=== PATIENT | female | born 1955 | race Caucasian/White ===

== ENCOUNTER 2019-02-19 19:38 | Inpatient (IN) | payer MEDICAID, MEDICARE, OTHER ==
[~2019-02-19] VITALS: Ht 154.9 cm; Wt 70.3 kg
[~2019-02-19 19:38] MED LIST: ATEN25TA PO; LEVO100T10 PO
[2019-02-19 20:37] LABS: BASOPHILS # (AUTO) 0.1 K/uL (0.0-8.0); BASOPHILS % (AUTO) 0.9 % (0.0-2.0); EOSINOPHILS # (AUTO) 0.1 K/uL (0.0-0.7); EOSINOPHILS % (AUTO) 0.9 % (0.0-7.0); HEMATOCRIT 26.8 % (31.2-41.9); HEMOGLOBIN 8.9 g/dL (10.9-14.3); LYMPHOCYTES # (AUTO) 1.1 K/uL (20.0-40.0); LYMPHOCYTES % (AUTO) 12.9 % (20.5-51.5); MEAN CORPUSCULAR HEMOGLOBIN 29.3 uug (24.7-32.8); MEAN CORPUSCULAR HGB CONC 33 g/dL (32.3-35.6); MEAN CORPUSCULAR VOLUME 87.6 fL (75.5-95.3); MONOCYTES % (AUTO) 11.5 % (0.0-11.0); NEUTROPHILS # (AUTO) 6.3 K/uL (1.8-8.9); NEUTROPHILS % (AUTO) 73.8 % (38.5-71.5); PLATELET COUNT (AUTO) 465 K/uL (179-408); RED BLOOD CELL COUNT(AUTO) 3.05 MIL/uL (3.63-4.92); WHITE BLOOD COUNT (AUTO) 8.5 K/uL (3.8-11.8)
[2019-02-19 20:43] LABS: ALANINE AMINOTRANSFERASE 40 U/L (14-59); ALKALINE PHOSPHATASE 104 U/L (50-136); ASPARTATE AMINOTRANSFERASE 85 U/L (15-37); BILIRUBIN,DIRECT 0.2 mg/dL (0.0-0.2); BILIRUBIN,TOTAL 0.4 mg/dL (0.2-1.0); CARBON DIOXIDE 25 mmol/L (21-32); CHLORIDE 101 mmol/L (98-107); GLUCOSE 101 mg/dL (74-106); TOTAL PROTEIN, SERUM 7.1 g/dL (6.4-8.2); UREA NITROGEN, BLOOD 21 mg/dL (7-18)
[2019-02-19 20:47] LABS: ACETAMINOPHEN < 2.0 ug/mL (10-30); POTASSIUM 2.7 mmol/L (3.5-5.1)
[2019-02-19 20:48] LABS: ETHANOL < 3 MG/DL (0-0)
[2019-02-19] MEDS ORDERED: IV D5W-0.45% NS +20 KCL 1,000 ML IV ONE ×2 (20:52→20:59)
[2019-02-19 20:54] LABS: THYROID STIMULATING HORMONE 3.661 mIU/mL (0.358-3.740)
[2019-02-19 22:00] VITALS: BP 147/93
[2019-02-19] MEDS ORDERED: ONDANSETRON 4 MG/2 ML VIAL IV PRN (22:00)
[2019-02-19] MEDS ORDERED: HYDROCODONE/APAP 5-325MG TABLET PO PRN (22:00)
[2019-02-19] MEDS ORDERED: MAGNESIUM HYDROXIDE 30 ML LIQUID UDC PO PRN (22:00)
[2019-02-19] MEDS ORDERED: Z GUARD REMEDY PASTE 57 GM TUBE TOP PRN (22:00)
[2019-02-19] MEDS ORDERED: ZOLPIDEM 5 MG TABLET PO PRN (22:00)
[2019-02-19] MEDS ORDERED: POTASSIUM CHLORIDE 20 MEQ TAB.PRT.SR PO ONE (22:45)
[2019-02-19] MEDS: FUROSEMIDE 40 MG/4 ML VIAL IV SCH (23:25)
[2019-02-19] MEDS ORDERED: CEFAZOLIN 1 G VIAL ONE (23:47)
[2019-02-20] MEDS: CEFAZOLIN 1 G in PREMIXED 1 EACH IV SCH ×4 (00:01→21:01)
[2019-02-20 00:30] VITALS: BP 121/65
[2019-02-20 01:58] LABS: *BILIRUBIN,URIN NEGATIVE (NEGATIVE); *BLOOD, URINE NEGATIVE (NEGATIVE); *CLARITY,URINE CLEAR (CLEAR); *KETONES,URINE NEGATIVE (NEGATIVE); *UROBILINOGEN,URINE 0.2 E.U./dl (NORMAL); LEUKOCYTE ESTERASE ,URINE NEGATIVE (NEGATIVE); NITRITE, URINE NEGATIVE (NEGATIVE); UGLUCOSE NEGATIVE (NEGATIVE)
[2019-02-20 02:15] LABS: *AMPHETAMINE, URINE NEGATIVE (NEGATIVE); *BARBITURATE, URINE NEGATIVE (NEGATIVE); *CANNABINOID, URINE NEGATIVE (NEGATIVE); *COCCAINE, URINE NEGATIVE (NEGATIVE); *OPIATE, URINE NEGATIVE (NEGATIVE); *PHENCYCLIDINE SCREEN,URINE NEGATIVE (NEGATIVE)
[2019-02-20 02:24] LABS: *COLOR,URINE STRAW (YELLOW)
[2019-02-20 02:27] LABS: BACTERIA,URINE NONE SEEN /HPF (NONE SEEN); RBC,URINE 0-3 /HPF (0-3); RENAL EPITHELIAL CELLS,URINE FEW /LPF (NONE SEEN); SQUAMOUS EPITHELIAL CELL,UR FEW /HPF (NONE SEEN); WBC,URINE 0-3 /HPF (0-3)
[2019-02-20] MEDS ORDERED: CEFAZOLIN 1 G VIAL ONE (05:11)
[2019-02-20] MEDS: ACETAMINOPHEN 325 MG TABLET PO PRN (06:33)
[2019-02-20] MEDS: LEVOTHYROXINE SODIUM 100 MCG TABLET PO SCH (06:33)
[2019-02-20 06:43] LABS: CREATININE 0.8 mg/dL (0.6-1.3); MAGNESIUM 1.7 mg/dL (1.8-2.4); POTASSIUM 2.9 mmol/L (3.5-5.1)
[2019-02-20 06:46] LABS: BASOPHILS # (AUTO) 0.1 K/uL (0.0-8.0); EOSINOPHILS # (AUTO) 0.3 K/uL (0.0-0.7); HEMATOCRIT 24.6 % (31.2-41.9); HEMOGLOBIN 8.4 g/dL (10.9-14.3); LYMPHOCYTES # (AUTO) 1.1 K/uL (20.0-40.0); LYMPHOCYTES % (AUTO) 16.2 % (20.5-51.5); MEAN CORPUSCULAR HEMOGLOBIN 29.6 uug (24.7-32.8); MEAN CORPUSCULAR HGB CONC 34 g/dL (32.3-35.6); MONOCYTES # (AUTO) 0.8 K/uL (2.0-10.0); MONOCYTES % (AUTO) 11.2 % (0.0-11.0); NEUTROPHILS # (AUTO) 4.8 K/uL (1.8-8.9); NEUTROPHILS % (AUTO) 67.6 % (38.5-71.5); PLATELET COUNT (AUTO) 461 K/uL (179-408); RED BLOOD CELL COUNT(AUTO) 2.83 MIL/uL (3.63-4.92); WHITE BLOOD COUNT (AUTO) 7.1 K/uL (3.8-11.8)
[2019-02-20 06:53] LABS: THYROID STIMULATING HORMONE 3.884 mIU/mL (0.358-3.740)
[2019-02-20 08:00] VITALS: BP 138/76
[2019-02-20] MEDS: FUROSEMIDE 40 MG/4 ML VIAL IV SCH ×2 (08:01→21:00)
[2019-02-20] MEDS: ATENOLOL 25 MG TABLET PO SCH ×2 (08:02→17:14)
[2019-02-20] MEDS ORDERED: MAGNESIUM SULFATE/D5W 100 ML IV SCH (09:30)
[2019-02-20] MEDS ORDERED: POTASSIUM CHLORIDE 20 MEQ TAB.PRT.SR PO ONE (09:30)
[2019-02-20 11:17] VITALS: BP 100/63
[2019-02-20] MEDS ORDERED: POTASSIUM CHLORIDE 50 ML IV SCH (12:00)
[2019-02-20] MEDS: POTASSIUM CHLORIDE 10 MEQ, LIDOCAINE-MPF 1% 1 ML in IV DEXTROSE 5% 100 ML IV SCH ×4 (12:34→16:00)
[2019-02-20 15:16] VITALS: BP 108/62
[2019-02-20 20:04] VITALS: BP 103/64
[2019-02-20 22:31] LABS: *OCCULT BLOOD STOOL POSITIVE (NEGATIVE)
[2019-02-21 00:22] VITALS: BP 123/75
[2019-02-21] MEDS: ACETAMINOPHEN 325 MG TABLET PO PRN ×3 (01:12→20:04)
[2019-02-21 05:52] LABS: BASOPHILS # (AUTO) 0.1 K/uL (0.0-8.0); BASOPHILS % (AUTO) 1.3 % (0.0-2.0); EOSINOPHILS # (AUTO) 0.3 K/uL (0.0-0.7); EOSINOPHILS % (AUTO) 6.1 % (0.0-7.0); HEMATOCRIT 25.4 % (31.2-41.9); HEMOGLOBIN 8.6 g/dL (10.9-14.3); LYMPHOCYTES # (AUTO) 1.2 K/uL (20.0-40.0); LYMPHOCYTES % (AUTO) 22.6 % (20.5-51.5); MEAN CORPUSCULAR HEMOGLOBIN 29.5 uug (24.7-32.8); MEAN CORPUSCULAR HGB CONC 34 g/dL (32.3-35.6); MEAN CORPUSCULAR VOLUME 86.9 fL (75.5-95.3); MONOCYTES # (AUTO) 0.6 K/uL (2.0-10.0); MONOCYTES % (AUTO) 11.6 % (0.0-11.0); NEUTROPHILS # (AUTO) 3.1 K/uL (1.8-8.9); NEUTROPHILS % (AUTO) 58.4 % (38.5-71.5); PLATELET COUNT (AUTO) 385 K/uL (179-408); RED BLOOD CELL COUNT(AUTO) 2.93 MIL/uL (3.63-4.92); WHITE BLOOD COUNT (AUTO) 5.3 K/uL (3.8-11.8)
[2019-02-21] MEDS: CEFAZOLIN 1 G in PREMIXED 1 EACH IV SCH ×3 (05:58→21:00)
[2019-02-21 06:08] LABS: CREATININE 0.7 mg/dL (0.6-1.3); MAGNESIUM 1.5 mg/dL (1.8-2.4); PHOSPHOROUS 2.8 mg/dL (2.5-4.9); POTASSIUM 3.4 mmol/L (3.5-5.1)
[2019-02-21] MEDS: LEVOTHYROXINE SODIUM 100 MCG TABLET PO SCH (06:45)
[2019-02-21] MEDS: FUROSEMIDE 40 MG/4 ML VIAL IV SCH ×2 (08:38→20:46)
[2019-02-21] MEDS: ATENOLOL 25 MG TABLET PO SCH ×2 (08:38→16:12)
[2019-02-21 11:12] VITALS: BP 109/66
[2019-02-21] MEDS ORDERED: POTASSIUM CHLORIDE 20 MEQ TAB.PRT.SR PO ONE (12:30)
[2019-02-21] MEDS ORDERED: CEPH-570 PO (12:53)
[2019-02-21] MEDS ORDERED: ACET325T53 PO (12:53)
[2019-02-21] MEDS: MAGNESIUM SULFATE/D5W 100 ML IV SCH ×2 (13:35→14:39)
[2019-02-21 15:06] VITALS: BP 109/60
[2019-02-21] MEDS: LAMOTRIGINE 100 MG TABLET PO SCH (20:47)
[2019-02-21] MEDS: ARIPIPRAZOLE 10 MG TABLET PO SCH (20:47)
[2019-02-21] MEDS: Z GUARD REMEDY PASTE 57 GM TUBE TOP SCH (20:51)
[2019-02-21 21:06] VITALS: BP 129/58
[2019-02-22] MEDS: ACETAMINOPHEN 325 MG TABLET PO PRN ×2 (03:19→15:03)
[2019-02-22] MEDS: CEFAZOLIN 1 G in PREMIXED 1 EACH IV SCH ×3 (05:14→21:29)
[2019-02-22] MEDS: LEVOTHYROXINE SODIUM 100 MCG TABLET PO SCH (06:33)
[2019-02-22] MEDS: FUROSEMIDE 40 MG/4 ML VIAL IV SCH ×2 (08:20→21:29)
[2019-02-22] MEDS: LAMOTRIGINE 100 MG TABLET PO SCH ×2 (08:20→20:49)
[2019-02-22] MEDS: ATENOLOL 25 MG TABLET PO SCH ×2 (08:23→17:11)
[2019-02-22] MEDS: Z GUARD REMEDY PASTE 57 GM TUBE TOP SCH ×2 (08:25→20:49)
[2019-02-22 11:45] VITALS: BP 112/75
[2019-02-22 15:53] VITALS: BP 120/69
[2019-02-22 20:04] VITALS: BP 132/75
[2019-02-22] MEDS: ARIPIPRAZOLE 10 MG TABLET PO SCH (20:49)
[2019-02-23 04:34] VITALS: BP 130/62
[2019-02-23] MEDS: CEFAZOLIN 1 G in PREMIXED 1 EACH IV SCH ×2 (05:54→13:59)
[2019-02-23] MEDS: LEVOTHYROXINE SODIUM 100 MCG TABLET PO SCH (08:01)
[2019-02-23] MEDS: LAMOTRIGINE 100 MG TABLET PO SCH (08:53)
[2019-02-23] MEDS: ATENOLOL 25 MG TABLET PO SCH ×2 (08:53→17:44)
[2019-02-23] MEDS: Z GUARD REMEDY PASTE 57 GM TUBE TOP SCH (08:54)
[2019-02-23] MEDS: FUROSEMIDE 40 MG/4 ML VIAL IV SCH (08:54)
[2019-02-23] MEDS: ACETAMINOPHEN 325 MG TABLET PO PRN ×2 (09:03→15:43)
[2019-02-23 11:13] VITALS: BP 163/66
[2019-02-23 13:24] VITALS: BP 122/74
[2019-02-23 15:25] VITALS: BP 130/64
[2019-02-23 17:44] VITALS: BP 126/66
== END 2019-02-23 18:35 | disposition home or self-care (01) | DRG 641 ==
LOC: ER 19:39 → TELE3 21:45 → MEDSURG3 02-21 17:30
DX: E87.6 Hypokalemia (principal); L03.116 Cellulitis of left lower limb; L03.115 Cellulitis of right lower limb; F31.64 Bipolar disorder, current episode mixed, severe, with psychotic features; L97.429 Non-pressure chronic ulcer of left heel and midfoot with unspecified severity; Z59.0 Homelessness; S90.822A Blister (nonthermal), left foot, initial encounter; X58.XXXA Exposure to other specified factors, initial encounter; Y92.89 Other specified places as the place of occurrence of the external cause; E03.9 Hypothyroidism, unspecified; I87.8 Other specified disorders of veins; E61.1 Iron deficiency; Z91.5 Personal history of self-harm; Z79.899 Other long term (current) drug therapy; Z79.890 Hormone replacement therapy; D64.9 Anemia, unspecified; I10 Essential (primary) hypertension
CPT/HCPCS: 36415; 70030-TC; 71045; 76700; 80307; 83550; 83735; 84100; 84443; 85025; 93005; 93307; 97116; 97530; A4663; G0378; G0480; G0480-TC; J0690; J1940; J2001; J3475; J3480; J3490; J7040; J7060